=== PATIENT | female | born 1990 | race Caucasian/White ===

== ENCOUNTER 2018-05-12 10:47 | Emergency (ER) | payer OTHER ==
[~2018-05-12] VITALS: Ht 157.5 cm; Wt 70.8 kg
[~2018-05-12 10:47] MED LIST: ACYCLOVIR 400400 MG PO; ACYCLOVIR 800800 MG PO; AMOXICILLIN 50500 MG PO; AMOXICILLIN500 M1 PO; BENTYL20 MG PO; CATAPRES0.1 MG PO; FAMVIR500 MG PO; NORCO 5-325 TA1 EACH PO; ZOFRAN4 MG PO
[2018-05-12] MEDS ORDERED: METHADONE10 MG/1 M1 PO (11:14)
[2018-05-12] MEDS ORDERED: REMERON15 MG PO (11:15)
[2018-05-12 11:32] VITALS: BP 113/66
== END 2018-05-12 11:32 ==
LOC: M.ERS 10:47
DX: O99.342 Other mental disorders complicating pregnancy, second trimester (principal); F41.9 Anxiety disorder, unspecified; Z3A.18 18 weeks gestation of pregnancy; Z90.49 Acquired absence of other specified parts of digestive tract; F17.210 Nicotine dependence, cigarettes, uncomplicated

== ENCOUNTER 2019-07-07 21:00 | Emergency (ER) | payer OTHER, MEDICAID ==
[~2019-07-07] VITALS: Ht 157.5 cm; Wt 79.4 kg
[~2019-07-07 21:00] MED LIST changes: +METHADONE10 MG/1 M1 PO; +REMERON15 MG PO
[2019-07-07 21:06] VITALS: BP 113/79
[2019-07-07] MEDS ORDERED: AMOXICILLIN 50500 MG PO (21:10)
[2019-07-07] MEDS ORDERED: IBUPROFEN 800800 MG PO (21:10)
== END 2019-07-07 21:14 | disposition home or self-care (01) ==
LOC: M.ERS 21:00
DX: K02.9 Dental caries, unspecified (principal); F17.210 Nicotine dependence, cigarettes, uncomplicated; Z90.49 Acquired absence of other specified parts of digestive tract

== ENCOUNTER 2019-10-21 04:12 | Emergency (ER) | payer OTHER, MEDICAID ==
[~2019-10-21] VITALS: Ht 157.5 cm; Wt 68.0 kg
[~2019-10-21 04:12] MED LIST changes: +IBUPROFEN 800800 MG PO
[2019-10-21] MEDS ORDERED: PREDNISONE50 MG PO (05:08)
[2019-10-21] MEDS ORDERED: BACLOFEN 10MG T10 MG PO (05:08)
[2019-10-21] MEDS ORDERED: IBUPROFEN 800800 MG PO (05:08)
[2019-10-21] MEDS ORDERED: METHOCARBAMOL500 M2 PO (05:08)
[2019-10-21 05:19] VITALS: BP 122/102
[2019-10-23] MEDS ORDERED: NAPROSYN500 MG PO (01:52)
[2019-10-23] MEDS ORDERED: MEDROLDOSEPACK PO (01:52)
[2019-10-23] MEDS ORDERED: NORFLEX100 MG PO (01:52)
== END 2019-10-21 05:28 | disposition home or self-care (01) ==
LOC: M.ERS 04:12
DX: M54.12 Radiculopathy, cervical region (principal); M62.838 Other muscle spasm; F17.210 Nicotine dependence, cigarettes, uncomplicated; Z88.8 Allergy status to other drugs, medicaments and biological substances; Z88.6 Allergy status to analgesic agent; Z90.49 Acquired absence of other specified parts of digestive tract

== ENCOUNTER 2021-01-17 07:40 | Emergency (ER) | payer OTHER, MEDICAID ==
[~2021-01-17] VITALS: Ht 157.5 cm; Wt 72.6 kg
[~2021-01-17 07:40] MED LIST changes: +BACLOFEN 10MG T10 MG PO; +MEDROLDOSEPACK PO; +METHOCARBAMOL500 M2 PO; +NAPROSYN500 MG PO; +NORFLEX100 MG PO; +PREDNISONE50 MG PO
[2021-01-17] MEDS ORDERED: PRENATAL VITAMIN (07:47)
[2021-01-17 08:47] VITALS: BP 117/64
== END 2021-01-17 08:49 | disposition short-term general hospital (02) ==
LOC: M.ERS 07:40
DX: O21.8 Other vomiting complicating pregnancy (principal); O36.8120 Decreased fetal movements, second trimester, not applicable or unspecified; O99.332 Smoking (tobacco) complicating pregnancy, second trimester; Z3A.24 24 weeks gestation of pregnancy; Z90.49 Acquired absence of other specified parts of digestive tract; Z88.8 Allergy status to other drugs, medicaments and biological substances